=== PATIENT | female | born 1960 | race Caucasian/White ===

== ENCOUNTER → 2025-11-15 10:19 | Outpatient (REF) | payer MEDICARE, SELFPAY ==
--- OUTSIDE RECORDS SUMMARY | 2025-11-15 11:34 | XMS_ITS | Patient Health Record ---
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 Role Phone Vandana VIVAS [facility] Primary Care Provider Ham Simon [phone] Reason For Referral No Information Medications Medication SIG (Take, Route, Frequency, Duration) Notes Start Date End Date Status Omeprazole 20mg Capsule Delayed Release 1 capsule Orally Once a day; Duration: 90 Active Lisinopril 5mg Activ e Ibuprofen 800 MG Tablet 1 tablet Orally QD Active OsmoPrep 1.102-0.398 GM Tablet as directed Orally as directed; Duration: 1 days 08/29/2014 Activ e Social History Social History Additional Details Category Social Info Options Details Miscellaneous: Marital status: Occupation: para professiona l Caffeine: more than 4 cups per day Section Notes: Nonsmoker; sig alcohol Nonsmoker; sig alcohol Problems Problem Type SNOMED Code ICD Code Onset Dates Problem Status W/U Status Risk Notes Problem H. Pylori (21619850) Helicobacter pylori (H. pylori) infection (041.86) Active confirmed Problem Colon cancer screening (578779490) Colon cancer screening (V76.51) Active confirmed Problem Gastroesophageal reflux disease (107160274) GERD (gastroesophage al reflux disease) (530.81) Active confirmed Problem Barium swallow abnormal (672901583) Abnormal barium swallow (793.4) Active confirmed Plan Of Treatment Future Test Test Name Order Date UPPER GI ENDOSCOPY 02/24/2014 Insurance Providers Payer Name Payer Address Payer Phone Subscriber Number Group Number Insured Name Patient Relationship to Insured Coverage Start Date Coverage End Date [facility] [address] [facility] [place] [phone] [id number] TIMOTHY LIZARRAGA Self - patient is the insured Medical (General) History Medical History History ICD Code HTN Denies [place],DM,CVA,Lung disease,renal dise ase GERD Negative colonoscopy around age 50 [address] Ranjit Breen--negative Arthritis, foot pain Upper endoscopy in 03/2014 wi th mild duodenitis and mild gastirits, with H.pylori; small HH and reflux--no esophagitis nor Reyna's Irregular heart beat --had a 30 day mon itor in 07/2014-? results Kidney stone--had a cystoscopy and stent Surgical History Surgery Date(Month/Year) hysterectomy knee surgery shoulder surgery Breast biopsy 02/24/14
--- OUTSIDE RECORDS SUMMARY | 2025-11-15 11:34 | XMS_ITS | Patient Health Record ---
Author [facility] Address [address] [facility] [place] [address] Care Team Providers Care Drop Clipper Name Role Phone Marlee Resendez MD Primary Care Provider Rex Borges Unavailable [phone] Allergies Allergen (clinical drug ingredient) Drug/Non Drug Allergy documented on EMR Reaction Allergy Type Onset Date Status sulindac Sulindac rash/hives Drug Allergy Active Reason For Referral No Information Medications Medication SIG (Take, Route, Frequency, Duration) Notes Start Date End Date Status Vitamin D (Ergocalciferol) 38922 UNIT TAKE 1 CAPSULE BY MOUTH ONCE A WEEK. Oral; Duration: 28 Active Lisinopril 40 MG 1 tablet Orally Once a day Active Calcium 600 MG 1 tablet with meals Orally Twice a day Active amLODIPine Besylate 5 MG TAKE 1 TAB BY MOUTH DAILY. Oral; Duration: 30 Active Aspirin 81 MG 1 tablet Orally Once a day Active Omeprazole 20 MG 2 capsules Orally On ce a day Not-Taking Clotrimazole-Betameth asone 1-0.05 % APPLY TO LEFT HEEL TWICE DAILY FOR 4 WEEKS External; Duration: 15 Not-Takin g Afluria Preservative Free 0.5 ML inject 0.5 milliliter intramuscularly Intramuscular; Duration: 1 Flu Shot Active Meloxicam 15 MG 1 tablet Orally Once a day; Duration: 30 day(s) 07/08/2017 Active Social History Tobacco Use: Social History Observation Description Date Details (start date - stop date) Never Smoker NA - NA Tobacco Use/Smoking Question Answer Notes Are you a: nonsmoker Additional Findings: Tobacco Non-User Current no n-smoker Alcohol Screen Question Answer Notes Did you have a drink containing alcohol in the p ast year? No Points 0 Interpretation Negative Tobacco use other than smoking: Question Answer Notes Are you an other tobacco user? No Problems Problem Type SNOMED Code ICD Code Onset Dates Problem Status W/U Status Risk Notes Problem Achilles bursitis (672705481) Achilles tendinitis, left leg (M76.62) Active confirmed Plan Of Treatment Pending Test Test Name Order Date X ray : Foot, left 3V 07/08/2017 09584, [id number]- INJECT TENDON ORIGIN/INSER T 04/10/2017 Insurance Providers Payer Name Payer Address Payer Phone Subscriber Number Group Number Insured Name Patient Relationship to Insured Coverage Start Date Coverage End Date Cigna [address] [place] [phone] [id number] Pratima Jasso Self - patient is the insured Medical (General) History Medical History History ICD Code back, hip, knee pain chicken pox hypertension reflux Heart disease Arthritis Surgical History Surgery Date(Month/Year) knee surgery hysterectomy shoulder surgery 04/2010
--- OUTSIDE RECORDS SUMMARY | 2025-11-15 11:34 | XMS_ITS | Encounter Summary ---
Author Organization [facility] Address [address] [place] [address] Care Team Providers Care Supply Chain Vice President Name Role Phone Ester Moser MD Primary Care Prov ider Encounter Details Date Type Department Care Team (Late st Contact Info) Description 09/23/2025 Results Follow-Up Adult [address] [phone] Ester Moser MD [address] [place], [place] Social History Tobacco Use Types Packs/Day Years Used Date Smoking Tobacco: Never Smokeless Tobacco: Never Alcohol Use Standard Drinks/Week Comments No 0 (1 standard drink = 0.6 oz pur e alcohol) Housing Instability Answer Date Recorde d Are you worried that in the next 2 months you may not have stable housing? No 09/21/2024 Food Access & Nutrition Answer Date Rec orded Do you have access to a vari ety of food including fruits and vegetables? Yes 09/21/2024 Access to Healthcare Answer Date Record ed Within the last 3 months, ho w many times did you visit the emergency department for your medical care? 0 09/21/2024 Health Literacy Answer Date Recorded How often do you need to hav e someone help you when you read instructions, pamphlets, or other written material from your doctor or pharmacy? Never 09/21/2024 Caregiver: How often do you need to have someone help you when you read instructions, pamphlets, or other written material from your doctor or pharmacy? Not on file 09/21/2024 Financial Risk Answer Date Recorded How hard is it for you to pa y for the very basics like food, housing, medical care, and air conditioning / heating? Patient declined 09/21/2024 Transportation Answer Date Recorded Has the lack of transportati on kept you from meetings, work, or from getting things needed for daily living? No Has the lack of transportati on kept you from medical appointments or from getting medications? No 09/21/2024 Social Isolation Answer Date Recorded How often do you feel lonely or isolated from th ose around you? Never 09/21/2024 Food Risk Answer Date Recorded Within the past 12 months we worried whether our food would run out before we got money to buy more. Patient declined 024 Within the past 12 months th e food we bought just didn't last and we didn't have money to get more. Patient declined 08/25 Dependent Care Answer Date Recorded Do you need help finding or paying for care for your loved ones. For example, children's nursery assistant or elderly care for an older adult? No 09/21/2024 Education Answer Date Recorded Do you think completing more education or training, like finishing a GED, going to college, or learning a trade, would be helpful for you? N/A 09/21/2024 Employment and Income Answer Date Recor ded During the last four weeks, have you been actively looking for work? No 09/21/2024 Living Situation Answer Date Recorded What is your living situation? Unrecognized valu e 09/21/2024 Comments No Sex and Gender Information Value Date Recorded Sex Assigned at Not on file Legal Sex Female 3:00 AM EST Gender Identity Not on file Sexual Orientation Not on file documented as of this encounter Progress Notes * Dipika Morales MA - 09/30/2025 9:[address] Tellez I do not see a Dx of sleep apnea nor Dm??? documented in this encounter Plan of Treatment Upcoming Encounters Date Type Department Care Team (Late st Contact Info) Description 01/10/2026 12:00 PM EST Office Visit Adult Medicine [address] [phone] Ester Moser MD [address] [place] [address] documented as of this encounter Visit Diagnoses Not on filedocumented in this encounter Additional Health Concerns Assessment Noted Time PHQ-9 Depression Total Score: 1 01/25/20 25 12:19 PM EST documented as of this encounter Care Teams Supply Chain Vice President Relationship Specialty Start Date End Date Ester Moser MD [address] [place] [address] PCP - General Internal Medicine 09/28/24 documented as of this encounter
--- OUTSIDE RECORDS SUMMARY | 2025-11-15 11:34 | XMS_ITS ---
Author Name [facility] Organization Unknown Care Team Organization Name Specialty Phone Email Start Date End Da te [facility] Sly Awan Primary [facility] 12/02/202206/24 [facility] Termed, PROVIDER Primary Care 10/01/202206/24
--- OUTSIDE RECORDS SUMMARY | 2025-11-15 11:34 | XMS_ITS | Data Portability ---
Author Organization [facility] Address [address] [place] [address] Assessment No assessment recorded. Plan of Treatment Reminders Order Date Submit Date Provider Last Modified By Organization Details Last Modified Time Details Appointments None recorded. Lab rapid strep group A, throat 2022 023 [facility] [address], [address] [place] [address], [phone], 3 11:49:24 rapid flu (A+B) 2022 023 [facility] _[facility], [address] [place] [address], [phone], 3 11:49:24 rapid SARS CoV 2 Ag, QL IA, respiratory specimen 2022 023 [facility] _[facility], [address] [place] [address], [phone], 3 11:49:24 Referral None recorded. Procedures None recorded. Surgeries None recorded. Imaging None recorded. Medication Orders prednisone 20 mg tablet 2022 023 [facility] #[id number], [address] [facility], [place], [address], 3 11:49:27 Allergy Relief (fluticason e) 50 mcg/actuati on nasal spray,suspe nsion 2022 023 [facility] #[id number], [address] [place] [address], [address], 3 11:49:27 benzonatate 200 mg capsule 2022 023 [facility][id number], [address] [place], [address], 3 11:49:26 Patient TargetsNo targets recorded. Patient Instructions Encounter Date Encounter Id Patient Instructions Last Modified By Organization Details Last Modified Time 01/09/2023 [id number] Sinusitis is an infection of the lining of the sinus cavities in your head. Sinusitis often follows a cold. It causes pain and pressure in your head and face. In most cases, sinusitis gets better on its own in 1 to 2 weeks. But some mild symptoms may last for several weeks. Sometimes antibiotics are needed. if you are having problems. It's also a good idea to know your test results and keep a list of the medicines you take. How can you care for yourself at home? Take an plso-uhy-xeoecrf pain medicine. Avoid Ibuprofen, Aleve and Aspirin if . If the doctor prescribed antibiotics, take them as directed. Do not stop taking them just because you feel better. You need to take the full course of antibiotics. Be careful when taking xzxa-cgj-alqmgae cold or influenza (flu) medicines and Tylenol at the same time. Many of these medicines have acetaminophen, which is Tylenol. Read the labels to make sure that you are not taking more than the recommended dose. Too much acetaminophen (Tylenol) can be harmful. Breathe warm, moist air from a steamy shower, a hot bath, or a sink filled with hot water. Avoid cold, dry air. Using a humidifier in your home may help. Follow the directions for cleaning the machine. Use saline (saltwater) nasal washes. This can help keep your nasal passages open and wash out mucus and bacteria. You can buy saline nose drops at a grocery store or drugstore. Or you can make your own at home by adding 1 teaspoon (5 millilitres) of salt and 1 teaspoon (5 millilitres) of baking soda to 2 cups (500 mL) of distilled water. If you make your own, fill a bulb syringe with the solution, insert the tip into your nostril, and squeeze gently. Blow your nose. Put a hot, wet towel or a warm gel pack on your face 3 or 4 times a day for 5 to 10 minutes each time. Try a decongestant nasal spray like oxymetazoline (Drixoral). Do not use it for more than 3 days in a row. Using it for more than 3 days can make your congestion worse. Not available 01/09/2023 11:46:47 If you test positive for COVID-19, stay home for at least 5 days and isolate from others in your home. You are likely most infectious during these first 5 days. Wear a high-quality mask if you must be around others at home and in public. Do not go places where you are unable to wear a mask. For travel guidance, see CDC s Travel webpage. Do not travel. Stay home and separate from others as much as possible. Use a separate bathroom, if possible. Take steps to improve ventilation at home, if possible. Don t share personal household items, like cups, towels, and utensils. Monitor your symptoms. If you have an emergency warning sign (like trouble breathing), seek emergency medical care immediately. If you had symptoms and: Your symptoms are improving You may end isolation after day 5 if: You are fever-free for 24 hours (without the use of fever-reducing medication). Your symptoms are not improving Continue to isolate until: You are fever-free for 24 hours (without the use of fever-reducing medication). Your symptoms are improving. Regardless of when you end isolation Until at least day 11: Avoid being around people who are more likely to get very sick from COVID-19. Remember to wear a high-quality mask when indoors around others at home and in public. Do not go places where you are unable to wear a mask until you are able to discontinue masking (see below). For travel guidance, see CDC s Travel webpage. Not available 01/09/2023 11:46:23 Reason for Referral None Reported. Results Created Date Observation Date Name Description Value Unit Range Abnormal Flag Note LastModifiedBy Organization Detail LastModifiedTime 01/09/2001/09/2023 rapid SARS CoV 2 Ag, QL IA, respi rator y speci men Unknown Analyte negati ve Not Available [address] [place] [address], [place], [address], 01/09/2023 11:00:24 01/09/20 23 01/09/2023 rapid SARS CoV 2 Ag, QL IA, respi rator y speci men Unknown Analyte Normal =Negat nereida Not Available [address] [place] [address], [place], [address], 01/09/2023 11:00:24 01/09/20 23 01/09/2023 rapid flu (A+B) Unknown Analyte negati ve Not Available [address] [place] [address], [place], [address], 01/09/2023 10:59:35 01/09/20 23 01/09/2023 rapid flu (A+B) Unknown Analyte negati ve Not Available [address] [place] [address], [place], [address], 01/09/2023 10:59:35 01/09/20 23 01/09/2023 rapid flu (A+B) Unknown Analyte Normal = Negati ve Not Available [address] [place] [address], [place], [address], 01/09/2023 10:59:35 01/09/20 23 01/09/2023 rapid flu (A+B) Unknown Analyte Normal = Negati ve Not Available [address] [place] [address], [place], [address], 01/09/2023 10:59:35 01/09/20 23 01/09/2023 rapid strep group A, throa t Unknown Analyte Normal = Negati ve Not Available [address] [place] [address] [place], [address], 01/09/2023 11:00:29 01/09/20 23 01/09/2023 rapid strep group A, throa t Unknown Analyte negati ve Not Available [address] [address] [facility] [place] [address], [place], [address], 01/09/2023 11:00:29 Result Notes None recorded. Problems Name Problem SNOMED Code Status Onset Date Resolution Date Notes Provider Name and Address Organization Details Recorded Time Asthma 458333998 Active 2022 OBED KNOX null, [place] - [facility] 3 10:56:59 Hypertensive disorder 75945002 Active 2022 OBED KNOX null, [place] - [facility] 3 10:58:44 Hyperlipidemia 31844705 Active 2022 OBED KNOX null, [place] - [facility] 3 10:58:53 Cardiomegaly 0505162 Active 2022 OBED KNOX null, [place] - [facility] 3 10:59:07 Problem Notes None recorded. Procedures Surgical History Date Name Laterality Status Provider Name and Address Organization Details Recorded Time hysterectomy completed OBED KNOX [place] - [facility] 01/09/2023 10:59:55 procedure on knee completed OBED KNOX [place] - [facility] 01/09/2023 11:00:18 Imaging Results None recorded. Procedure Notes None recorded. Medical Equipment None Reported. Allergies Allergen ID Allergen Name Allergen Category Reaction Reaction Severity Criticality Documentation Date Start Date Code Code System Note Provider Name and Address Organization Details Recorded Time 082703 sulindac medicatio n facial swelling rash Not available Not available Not available 01/09/2023 76524 RxNorm OBEDTERESO KNOX null, [place] - [facility] 3 10:55:40 294016 amoxicill in medicatio n diarrhea Not available Not available 01/09/2023 723 RxNorm with clavu lanic acid OBEDTERESO KNOX null, [place] - [facility] 3 10:57:51 Medications Name Sig Start Date Stop Date Status Note LastModified by Organization Details LastModified Time atorvastati n 20 mg tablet active Not Available Not Available Not Available benzonatate 200 mg capsule TAKE 1 CAPSULE BY MOUTH THREE TIMES A DAY NEEDED FOR 7 DAYS active Not Available Not Available No t Available ondansetron HCl 4 mg tablet 01/09 completed Not Available Not Available Not Available prednisone 20 mg tablet TAKE 2 TABLETS EVERY DAY BY MOUTH IN THE MORNING FOR 4 DAYS. active Not Available Not Available No t Available amlodipine 5 mg tablet TAKE 1 TABLET BY MOUTH EVERY DAY active Not Available Not Available No t Available meclizine 25 mg tablet TAKE 1 TABLET BY MOUTH 3 TIMES DAILY NEEDED FOR DIZZINESS 01/09 completed Not Available Not Available Not Available lisinopril 30 mg tablet TAKE 1 TABLET BY MOUTH EVERY DAY *NEED APPT FOR FUTURE REFILLS* active Not Available Not Available No t Available diclofenac sodium 50 mg tablet,francis yed release TAKE 1 TABLET BY MOUTH TWICE A DAY active Not Available Not Available No t Available scopolamine 1 mg over 3 days transdermal patch 01/09 completed Not Available Not Available Not Available fluticasone propionate 50 mcg/actuati on nasal spray,suspe nsion SPRAY 1 SPRAY BY INTRANASA L ROUTE TWICE A DAY DIRECTED active Not Available Not Available No t Available amoxicillin 875 mg-potassiu m clavulanate 125 mg tablet 01/09 completed Not Available Not Available Not Available Vitamin D3 25 mcg (1,000 unit) tablet TAKE 1 TABLET BY MOUTH EVERY DAY active Not Available Not Available No t Available Proair Digihaler active Not Available Not Available No t Available aspirin 81 mg capsule Take 1 capsule every day by oral route. active Not Available Not Available No t Available Vitals Date Recorded Body height Body mass index (BMI) Body weight Pain severity - 0-10 verbal numeric rating [Score] - Reported Respiratory rate Oxygen saturation Heart rate Body temperature Systolic And Diastolic Provider Name and Address Organization Details Last Updated DateTime 3 165.1 cm 36.1 kg/m2 82743.5 4 g 6 18 /min 100 % 60 /min 98.2 [degF] 130/77 mm[Hg] [facility] 3 11:01:13 Social History Question Answer Notes LastModified by Organizat ion Details LastModified Time Tobacco Smoking Status Never Smoker [facility]GELL[facility] [place] - [facility] 01/09/2023 10:59:27 Have You Recently Traveled Abroad? No Information not available 01/09/2023 Sex: Unknown Functional Status Question Answer Note LastModified by Organizat ion Details LastModified Time Do you use any illicit or recreational drugs? No [email or web address] Information not available 01/09/2023 Do you or have you ever used any other forms of tobacco or nicotine? No Information not available 01/09/2023 What is your level of alcohol consumption? None [email or web address] Information not available 01/09/2023 Mental Status None recorded. Family History Relationship Description Onset Age of this Age Resolved Age Notes LastModified by Organization Details LastModified Time Father No current problems or disability [email or web address] Not available 01/09 10:59:10 Mother No current problems or disability [email or web address] Not available 01/09 10:59:10 Medical History No medical history recorded. Gynecological HistoryNo gynecological history recorded. Obstetrics History GPAL:G 0 P 0 0 0 0 Past Encounters Encounter ID Performer Location Encounter Start Date Encounter Closed Date Diagnosis/Indication Diagnosis SNOMED-CT Code Diagnosis ICD10 Code Diagnosis IMO Codes Diagnosis Note [id number] [facility] [address] [address] [place] [address] 01/06/2019 09:20:37 01/06/2019 10:01:04 [id number] [address] [address] [address] [place] [address] 09/21/2019 17:07:14 09/21/2019 18:09:59 [id number] [address] [address] [address] [place] [address] 12/21/2018 16:03:57 12/21/2018 16:33:41 [id number] [address] [address] [address] [place] [address] 05/17/2020 08:58:55 05/17/2020 09:42:24 [id number] [address] [facility] [address] [place] [address] 10/02/2022 09:43:05 10/02/2022 12:38:15 [id number] Alessandro Chung NP [address] [address] [place] [address] 01/09/2023 10:03:23 01/09/2023 11:53:43 Exposure to SARS-CoV-2 180991377 Z20.822 Acute sinusitis 50206010 J01.90 Health Concerns Section Related Observation LastModified by Organization Detai ls LastModified Time None Recorded Concern Status LastModified by Organization Details LastModified Time None Recorded Advance Directives Directive None Recorded Payers Insurance Date Sequence Insurance Name Policy Number Policy Long Covered Member ID Long Member ID Guarantor Name 01/09/[address] [place] [address] [id number] Pratima Jasso [id number] Pratima Jasso Notes Date Note Type Note Provider Name and Address Organization Details Recorded Time 01/09/2023 text/html CongestionReport ed by Patientnasal congestion with post nasal drip x 3 days. denies nay fever or fever with chills. no SOB or respiratory distress. Alessandro Chung NP [address] [place], [address], [place] - [facility] 01/09/2023 11:50:08 OBGyn Episode No OBEpisode recorded.
--- OUTSIDE RECORDS SUMMARY | 2025-11-15 11:34 | XMS_ITS | Clinical Summary ---
Author Organization [facility] [address] [place] [address] [place] [phone] Phone Care Team Providers Care Quality Control Chemist Name Role Phone Ester Moser MD Primary Care Prov ider Allergies Active Allergy Reactions Criticality Noted Date Comments Amoxicillin Diarrhea 01/31/2025 amoxicillin Sulindac Rash Low 03/17/2014 Medications aspirin 81 mg chewable tablet Chew 1 tablet (81 mg total) 1 (one) time each day. 02/15/20 15 Active albuterol HFA (PROAIR HFA ; PROVENTIL HFA ; VENTOLIN HFA) 90 mcg/actuation inhaler Inhale 2 Puffs into the lungs every 4 hours as needed for Cough, Wheezing or Shortness of Breath. 6.7 g 2 02/01/20 25 Active atorvastatin (LIPITOR) 40 mg tablet Take 1 tablet (40 mg total) by mouth 1 (one) time each day. 90 each 3 02/01/20 25 026 Active fluticasone propionate (FLONASE) 50 mcg/actuation nasal spray Shake gently. Before first use, prime pump. After use, clean tip and replace cap.2 Sprays by Each Nare route daily for 90 days. 16 g 2 02/19/20 25 Active cholecalciferol (Vitamin D3) 25 mcg (1,000 unit) tablet Take 1 tablet (1,000 Units total) by mouth 1 (one) time each day. 90 tablet 1 06/16/20 25 026 Active losartan-hydroC HLOROthiazide (Hyzaar) 100-12.5 mg per tabletIndicatio ns:Primary hypertension Take 1 tablet by mouth 1 (one) time each day. 30 each 2 09/22/20 25 026 Active tirzepatide, weight loss, (ZEPBOUND) 2.5 mg/0.5 mL injection Inject 0.5 mL (2.5 mg total) under the skin every 7 (seven) days. 6 mL 10/24/20 25 Active Additional Information Patient not taking.Reported on 11/08/2025 tirzepatide (MOUNJARO) 2.5 mg/0.5 mL injectionIndica tions:Class 2 severe obesity due to excess calories with serious comorbidity and body mass index (BMI) of 37.0 to 37.9 in adult Inject 0.5 mL (2.5 mg total) under the skin every 7 (seven) days. 6 mL 10/03/20 25 025 Discontinued Active Problems Problem Noted Date Diagnosed Date History of Helicobacter pylori infection 025 Asthma 01/09/2023 Cardiomegaly 01/09/2023 Hyperlipidemia 01/09/2023 Assessment & Plan (09/22/2025 1:41 PM EDT): Currently on Atorvastatin. Last LDL 73 Will continue same medication. Assessment & Plan (07/12/2025 9:57 AM EDT): On atorvastatin 40 mg a day LDL 73. Healthy diet and regular exercise discussed as above. Will continue same medication. Assessment & Plan (06/16/2025 10:48 AM EDT): On atorvastatin to 40 mg a day. Healthy diet and regular exercise discussed as above. Will check a lipid profile and CMP before her next visit. Orders: CBC and differential; Future Comprehensive metabolic panel; Future Lipid panel with reflex to direct LDL; Future Thyroid stimulating hormone with reflex to free t4 and free t3; Future Left ventricular hypertrophy 12/20/2022 Left Achilles tendinitis 10/27/2017 Overview (08/23/2024): Dr Zamorano ([facility]) Atypical chest pain 02/14/2015 GE reflux 02/11/2014 Throat discomfort 11/19/2011 Overview (08/23/2024): Saw ENT, see note 11/19/11 HTN (hypertension) 06/18/2010 Assessment & Plan (09/22/2025 1:41 PM EDT): BP elevated today. Will Increase the dose of losartan/hctz to 100/12.5. Previously on Lisinopril at max dose with no good control. Orders: losartan-hydroCHLOROthiazide (Hyzaar) 100-12.5 mg per tablet; Take 1 tablet by mouth 1 (one) time each day. Assessment & Plan (07/12/2025 9:57 AM EDT): Blood pressure is well controlled today. Recently switched to Losartan/hctz 50/12.5mg, well tolerated.Will continue same medication. Instructed to follow a low-salt diet and exercise regularly. Assessment & Plan (06/16/2025 10:48 AM EDT): Blood pressure is not well controlled today. 150/70. Previously on amlodipine but dcd for side effects, on Lisinopril 40mg. Will switch to Losartan/hctz. We will follow up in 1 month. Instructed to follow a low-salt diet and exercise regularly. Orders: CBC and differential; Future Comprehensive metabolic panel; Future Lipid panel with reflex to direct LDL; Future Thyroid stimulating hormone with reflex to free t4 and free t3; Future Assessment & Plan (01/31/2025 10:19 AM EDT): Pure hypercholesterolemia 06/18/2010 Assessment & Plan (07/12/2025 9:44 AM EDT): SmartLink not supported outside of the Encounter Diagnoses SmartSection. Assessment & Plan (01/31/2025 10:19 AM EDT): Encounters Date Type Department Care Team Description 10/24/2025 11:30 AM EST Office Visit Adult [address] [phone] Zulema Nj PA Primary hypertension (Primary Dx); Mixed hyperlipidemia; Class 2 severe obesity due to excess calories with serious comorbidity and body mass index (BMI) of 37.0 to 37.9 in adult 10/24/[address] [phone] Ester Whyte MD 09/23/2025 Results Follow-Up [address] [phone] Ester Whyte MD 09/22/2025 12:35 PM EDT Lab Draw [address] Obesity (BMI 30-39.9) 09/22/2025 12:00 PM EDT Office Visit [address] [phone] Ester Whyte MD Obesity (BMI 30-39.9) (Primary Dx); Primary hypertension; Mixed hyperlipidemia; Snoring; Chronic pain of both lower extremities from Last 3 Months Immunizations Immunization Administration Dates Next Due Influenza Quadravalent, MDCK , 0.5ml, preservative free (Flucelvax) 6mo and older 08/13/2022,08/22/2021,08/04/2020 Influenza Quadravalent, MDCK , 0.5ml, with preservative (Flucelvax) 6mo and older 09/20/2019 Influenza trivalent, 0.5mL, preservative free (Fluarix; FluLaval; Fluzone) ages 6mo and older (Afluria) 3 years and older 09/12/2017,08/27/2016 Influenza trivalent, with pr eservative (Fluzone; Afluria) 6mo and older 11/19/2011,09/04/2010 Influenza, Unspecified 08/21/2021,08/24/2017,01/2016 Moderna SARS-CoV-2 COVID-19, mRNA, LNP-S, preservative free 12/21/2021,03/02/2021,02/02/2021 Td Tetanus diptheria (Tdvax) 7yo and older 07/14 Tdap Tetanus diptheria acell ular pertussis (Boostrix; Adacel) 7yo and older 02/18/2012 Surgical History Surgery Date Site/Laterality Comments OTHER SURGICAL HISTORY 2003 PROCEDURE: HISTORICAL TOTAL HYSTERECTOMY W/O BSO; COMMENT: dysmenorrhea, menorrhagia KNEE SURGERY -2005 PROCEDURE: HISTORICAL KNEE SURGERY; COMMENT: left - arthroscopy COLONOSCOPY 06/30/2012 PROCEDURE: [place] COLONOSCOPY FLX DX W/COLLJ SPEC WHEN PFRMD; COMMENT: negative/incomplete to 50 cm. EYE SURGERY 11/06/2017 Right PROCEDURE: HISTORICAL EYE SURGERY OTHER SURGICAL HISTORY 11/2017 Left PROCEDURE: ---- OTHER ----; COMMENT: Left heel surgery BREAST BIOPSY 2014 Right PROCEDURE: BX BREAST; PERC NEEDLE CORE W/IMAG GUID; COMMENT: rt. breast bx-benign HYSTERECTOMY Medical History Medical History Date Comments HTN (hypertension) 06/18/2010 DX:HTN (hyper tension) Pure hypercholesterolemia 06/18/2010 DX:Pur e hypercholesterolemia Throat discomfort 11/19/2011 DX:Throat disc omfort GE reflux 02/11/2014 DX:GE reflux Family History Medical History Relation Name Comments CABG Brother 1 Coronary artery disease Brother 1 Diabetes Brother 1 Hyperlipidemia Brother 1 Hypertension Brother 1 Coronary artery disease Brother 2 Coronary artery disease Brother 3 Other: Kidney failure Brother 3 No Known Problems Daughter 1 No Known Problems Daughter 2 Heart attack Father age 59 Arthritis Mother Coronary artery disease Mother Diabetes Mother Hyperlipidemia Mother Hypertension Mother Thyroid disease Mother Breast cancer Mother's side mother's cousin Cousin Breast cancer Other p. aunt Arthritis Sister 1 Coronary artery disease Sister 1 Arthritis Sister 2 Coronary artery disease Sister 2 Arthritis Sister 3 Coronary artery disease Sister 3 Arthritis Sister 4 Coronary artery disease Sister 4 Arthritis Sister 5 Coronary artery disease Sister 5 Colon cancer Neg Hx Ovarian cancer Neg Hx Stroke Neg Hx Relation Name Status Comments Brother 1 Alive Brother 2 Alive Brother 3 Daughter 1 Alive Daughter 2 Alive Father Maternal Grandfather Maternal Grandmother Mother Alive Mother's side mother's cousin Other p. aunt Alive Paternal Grandfather Paternal Grandmother Sister 1 Alive Sister 2 Alive Sister 3 Alive Sister 4 Alive Sister 5 Alive Social History Tobacco Use Types Packs/Day Years Used Date Smoking Tobacco: Never Smokeless Tobacco: Never Tobacco Cessation:Counseling Given: Not Answered Alcohol Use Standard Drinks/Week Comments No 0 (1 standard drink = 0.6 oz pur e alcohol) Housing Instability Answer Date Recorde d Are you worried that in the next 2 months you may not have stable housing? No 10/24/2025 Food Access & Nutrition Answer Date Rec orded Do you have access to a vari ety of food including fruits and vegetables? Yes 10/24/2025 Access to Healthcare Answer Date Record ed Within the last 3 months, ho w many times did you visit the emergency department for your medical care? 0 09/21/2024 Health Literacy Answer Date Recorded How often do you need to hav e someone help you when you read instructions, pamphlets, or other written material from your doctor or pharmacy? Never 10/24/2025 Caregiver: How often do you need to have someone help you when you read instructions, pamphlets, or other written material from your doctor or pharmacy? Not on file 10/24/2025 Financial Risk Answer Date Recorded How hard is it for you to pa y for the very basics like food, housing, medical care, and air conditioning / heating? Not very hard 10/24/2025 Transportation Answer Date Recorded Has the lack of transportati on kept you from meetings, work, or from getting things needed for daily living? No Has the lack of transportati on kept you from medical appointments or from getting medications? No 10/24/2025 Social Isolation Answer Date Recorded How often do you feel lonely or isolated from th ose around you? Never 10/24/2025 Food Risk Answer Date Recorded Within the past 12 months we worried whether our food would run out before we got money to buy more. Never true 10/24/2025 Within the past 12 months th e food we bought just didn t last and we didn t have money to get more. Not on file 10/24/2025 Dependent Care Answer Date Recorded Do you need help finding or paying for care for your loved ones. For example, child neurologist or elderly care for an older adult? No 10/24/2025 Education Answer Date Recorded Do you think completing more education or training, like finishing a GED, going to college, or learning a trade, would be helpful for you? N/A 10/24/2025 Employment and Income Answer Date Recor ded During the last four weeks, have you been actively looking for work? No 10/24/2025 Living Situation Answer Date Recorded What is your living situation? Unrecognized valu e 10/24/2025 Comments No Sex and Gender Information Value Date Recorded Sex Assigned at Not on file Legal Sex Female 3:00 AM EST Gender Identity Not on file Sexual Orientation Not on file Obstetrics History Para Term AB IAB SAB Ectopic Multiple Livin g Live Births 2 2 2 2 Date Outcome GA Total Labor Labor/2nd/3rd Weight Sex Type Anes PTL Karin A1 A5 Name Clin Term Term Last Filed Vital Signs Vital Sign Reading Time Taken Comments Blood Pressure 180/77 11/08/2025 10:47 AM EST Pulse 65 11/08/2025 10:47 AM EST Temperature 36.9 C (98.4 F) 10/24/2025 11:39 AM EST Respiratory Rate 17 10/24/2025 11:39 AM EST Oxygen Saturation 99% 10/24/2025 11:39 AM EST Inhaled Oxygen Concentration - - Weight 103 kg (226 lb) 11/08/2025 10:47 AM EST Height 162.6 cm (5' 4 ) 11/08/2025 10:47 AM EST Body Mass Index 38.79 11/08/2025 10:47 AM EST Plan of Treatment Upcoming Encounters Date Type Department Care Team (Late st Contact Info) Description 01/10/2026 12:00 PM EST Office Visit Adult Medicine [address] [phone] Ester Moser MD [address] [place] [address] Health Maintenance Due Date Last Done Comments Pneumococcal Vaccine: 50+ Years (1 of 2 - PCV) 1979 RSV Immunization Adult Patients (1 - Risk 50-74 years 1-dose series) 2010 Zoster Vaccines (1 of 2) 2010 DTaP,Tdap,and Td Vaccines (3 - Td or Tdap) 02/17/2022 02/18/2012, 07/14/2006 Medicare Annual Wellness Visit 11/02/2022 Osteoporosis Screening (Bone Density Screening) 11/02/2022 Influenza Vaccine (#1) 2026 2, 08/22/2021, 08/21/2021, Additional history exists Postponed from 07/25/2025 (Patient Refused) Hypertension/CHF/CAD Annual BMP Blood Test 09/22/2026 09/22/2025, 06/27/2025, 01/21/2025, Additional history exists Falls Risk Assessment 10/24/2026 10/24/2025 Social Influencers of Health Screening 10/24/2026 10/24/2025 Breast Cancer Screening 10/28/2026 10/28/20 24, 10/16/2024, 09/11/2023, Additional history exists Colorectal Cancer Screening: Colonoscopy 03/29/2029 03/29/2024 Cholesterol Screening (Lipid Panel) 06/27/2030 06/27/2025, 01/21/2025, 05/25/2024, Additional history exists Hepatitis C Screening Completed 02/11/2014 COVID-19 Vaccine Discontinued 12/21/2021, 07/2021, 02/02/2021 Depression Screening Completed 10/24/2025 HIB Vaccines Aged Out No longer eligi ble based on patient's age to complete this topic HPV Vaccines Aged Out No longer eligi ble based on patient's age to complete this topic Hepatitis A Vaccines Aged Out No long er eligible based on patient's age to complete this topic Hepatitis B Vaccines Aged Out No long er eligible based on patient's age to complete this topic IPV Vaccines Aged Out No longer eligi ble based on patient's age to complete this topic MMR Vaccines Aged Out No longer eligi ble based on patient's age to complete this topic Meningococcal ACWY Vaccine Aged Out N o longer eligible based on patient's age to complete this topic Meningococcal B Vaccine Aged Out No l onger eligible based on patient's age to complete this topic RSV Immunization Patients Under 20 months Aged Out No longer eligible based on patient's age to complete this topic Varicella Vaccines Aged Out No longer eligible based on patient's age to complete this topic Procedures Procedure Name Priority Date/Time Associated Diagnosis Comments BASIC METABOLIC PANEL Routine 09/22/2025 12:48 PM EDT Obesity (BMI 30-39.9) MAGNESIUM Routine 09/22/2025 12:48 PM EDT Obesity (BMI 30-39.9) LIPID PANEL WITH REFLEX TO DIRECT LDL Routine 06/27/2025 8:51 AM EDT Primary hypertension Mixed hyperlipidemia Class 2 severe obesity due to excess calories with serious comorbidity and body mass index (BMI) of 37.0 to 37.9 in adult (CMS/HCC V24, CMS/HCC V28) MG MAMMO DIGITAL DIAGNOSTIC W ANDRES LEFT Routine 10/28/2024 10:38 AM EST Abnormal mammogram HM COLONOSCOPY Routine 03/29/2024 HEPATITIS C SCREENING Routine 02/11/2014 from Last 3 Months or Most Recently Relevant to Health Maintenance Results * Magnesium (09/22/2025 12:48 PM EDT) Pathologist [facility] Magnesium 2.1 1.9 - 2.6 mg/dL LAB CHEMISTRY METHOD 09/22/2025 4:52 PM EDT [facility] Blood Venous blood specimen / Unknown Venipuncture / Unknown 09/22/2025 12:48 PM EDT 09/22/2025 12:48 PM EDT us Ester Moser MD LAB BLOOD ORDERABL ES Final Result [facility] [address] [place] [address], [place] [phone] * Basic metabolic panel (09/22/2025 12:48 PM EDT) Sodium 141 133 - 145 mmol/L LAB CHEMISTRY METHOD 09/22/2025 4:52 PM EDT [facility] Potassium 4.1 3.5 - 5.5 mmol/L LAB CHEMISTRY METHOD 09/22/2025 4:52 PM EDT [facility] Chloride 104 96 - 110 mmol/L LAB CHEMISTRY METHOD 09/22/2025 4:52 PM EDT [facility] CO2 31 21 - 32 mmol/L LAB CHEMISTRY METHOD 09/22/2025 4:52 PM [facility] Anion Gap 6 3 - 11 LAB CHEMISTRY METHOD 09/22/2025 4:52 PM [facility] Glucose 93 70 - 100 mg/dL LAB CHEMISTRY METHOD 09/22/2025 4:52 PM [facility] BUN 16 5 - 25 mg/dL LAB CHEMISTRY METHOD 09/22/2025 4:52 PM [facility] Creatinine 0.68 0.50 - 1.10 mg/dL LAB CHEMISTRY METHOD 09/22/2025 4:52 PM [facility] eGFR 97 >=60 mL/min/1. 73m2 LAB CHEMISTRY METHOD 09/22/2025 4:52 PM [facility] Comment:Calculation based on the Chronic Kidney Disease Epidemiology Collaboration (CKD-EPI) equation refit without adjustment for race. BUN/Creatinine Ratio 23.5 LAB CHEMISTRY METHOD 09/22/2025 4:52 PM [facility] Calcium 9.8 8.5 - 10.5 mg/dL LAB CHEMISTRY METHOD 09/22/2025 4:52 PM [facility] Blood Venous blood specimen / Unknown Venipuncture / Unknown 09/22/2025 12:48 PM EDT 09/22/2025 12:48 PM EDT us Ester Moser MD LAB BLOOD ORDERABL ES Final Result [facility] [address] [place] [address], [place] [phone] * Lipid panel with reflex to direct LDL (06/27/2025 8:51 AM EDT) Cholesterol 164 0 - 200 mg/dL LAB CHEMISTRY METHOD 06/27/2025 2:51 PM EDT [facility] Triglycerides 83 0 - 150 mg/dL LAB CHEMISTRY METHOD 06/27/2025 2:51 PM EDT [facility] HDL 74 >=40 mg/dL LAB CHEMISTRY METHOD 06/27/2025 2:51 PM EDT [facility] LDL Calculated 73 0 - 100 mg/dL LAB CHEMISTRY METHOD 06/27/2025 2:51 PM EDT [facility] VLDL Cholesterol Jarrod 16.6 mg/dL LAB CHEMISTRY METHOD 06/27/2025 2:51 PM EDT [facility] Non HDL Chol. (LDL+VLDL) 90 <145 mg/dL LAB CHEMISTRY METHOD 06/27/2025 2:51 PM EDT [facility] Chol/HDL Ratio 2.2 0.0 - 4.4 LAB CHEMISTRY METHOD 06/27/2025 2:51 PM EDT [facility] Blood Venous blood specimen / Unknown Venipuncture / Unknown 06/27/2025 8:51 AM EDT 06/27/2025 8:51 AM EDT us Ester Moser MD LAB BLOOD ORDERABL ES Final Result [facility] [address] [place] [address], * MG Mammo Digital Diagnostic w Andres Left (10/28/2024 10:38 AM EST) Anatomical Region Laterality Modality Breast Left Mammography 10/28/2024 11:4 9 AM EST Impressions 10/28/2024 11:56 AM EST LEFT BREAST: Negative, no evidence of malignancy. Normal interval follow-up is recommended in 12 months. Findings and recommendations were discussed with the patient at the completion of the studies. BREAST DENSITY: B - There are scattered areas of fibroglandular density. BI-RADS CATEGORY: 1 - NEGATIVE RECOMMENDATION: Mammography: Screening left mammogram is recommended in 1 year. Ultrasound: Screening left mammogram is recommended in 1 year. Mammo Location: [facility], [address] [place] [address], [id number], . -------- FINAL REPORT -------- Dictated By: Angie Domingo Dictated Date: 10/28/2024 11:49 ET Assigned Physician: Angie Domingo Reviewed and Electronically Signed By: Angie Domingo Signed Date: 10/28/2024 11:56 ET Workstation ID: [id number] Transcribed By: Self Edit Transcribed Date: 10/28/2024 11:49 ET Narrative 10/28/2024 11:56 AM EST HISTORY: Callback from screening for 0.5 cm left breast focal asymmetry in the upper-outer quadrant at about 11 to 12 cm from the nipple. STUDIES: 1. Unilateral left diagnostic mammography with tomosynthesis and CAD 2. Targeted ultrasound of the left breast TECHNIQUE: Unilateral left digital diagnostic mammography is obtained and read in conjunction with computer-aided detection. Tomosynthesis as well as 2-D C view imaging were obtained. Spot compression Tomosynthesis images were also obtained. COMPARISON: Comparison made to multiple prior, most recent September 11, 2023, and most remote February 08, 2014. LEFT BREAST: Previously suggested focal asymmetry in the upper-outer quadrant at 11 to 12 cm from the nipple is less conspicuous on today's images and may have represented overlapping fibroglandular breast tissue. Targeted ultrasound of the left breast was performed at the location of the mammographic finding. The survey was performed at throughout the upper outer quadrant and did not reveal suspicious sonographic findings. Procedure Note Angie Domingo MD - 10/28/2024 HISTORY: Callback from screening for 0.5 cm left breast focal asymmetry inthe upper-outer quadrant at about 11 to 12 cm from the nipple. STUDIES: 1. Unilateral left diagnostic mammography with tomosynthesis and CAD 2. Targeted ultrasound of the left breast TECHNIQUE: Unilateral left digital diagnostic mammography is obtained andread in conjunction with computer-aided detection. Tomosynthesis as wellas 2-D C view imaging were obtained. Spot compression Tomosynthesis imageswere also obtained. COMPARISON: Comparison made to multiple prior, most recent August, and most remote February 08, 2014. LEFT BREAST: Previously suggested focal asymmetry in the upper-outerquadrant at 11 to 12 cm from the nipple is less conspicuous on today'simages and may have represented overlapping fibroglandular breasttissue. Targeted ultrasound of the left breast was performed at the location ofthe mammographic finding. The survey was performed at throughout theupper outer quadrant and did not reveal suspicious sonographic findings. IMPRESSION: LEFT BREAST: Negative, no evidence of malignancy. Normal intervalfollow-up is recommended in 12 months. Findings and recommendations were discussed with the patient at thecompletion of the studies. BREAST DENSITY: B - There are scattered areas of fibroglandular density. BI-RADS CATEGORY: 1 - NEGATIVE RECOMMENDATION: Mammography: Screening left mammogram is recommended in 1 year. Ultrasound: Screening left mammogram is recommended in 1 year. Mammo Location: [facility], [address] [place] [address], [id number], . -------- FINAL REPORT -------- Dictated By: Angie Domingo Dictated Date: 10/28/2024 11:49 ET Assigned Physician: Angie Domingo Reviewed and Electronically Signed By: Angie Domingo Signed Date: 10/28/2024 11:56 ET Workstation ID: [id number] Transcribed By: Self Edit Transcribed Date: 10/28/2024 11:49 ET Ester Moser MD IMG BI PROCEDURES Final Result * Colonoscopy (03/29/2024) Colonoscopy Normal, Abstracted Anatomical Region Laterality Modality Other Historical Provider HEALTH MAINTENANCE Final Result * Hepatitis C Screening (02/11/2014) Hepatitis C Screening Abstracted us Historical Provider HEALTH MAINTENANCE Final Result from Last 3 Months or Most Recently Relevant to Health Maintenance Insurance [employer] MEDICARE Care Teams Quality Control Chemist Relationship Specialty Start Date End Date Ester Moser MD [address] [place] [phone] PCP - General Internal Medicine 09/28/24
== END ==
LOC: HO.SL 10:19
PROVIDERS: PCP Internal Medicine; Visit Provider Internal Medicine
DX: R06.83 Snoring (principal)
CPT/HCPCS: 95806

== ENCOUNTER → 2025-11-15 21:00 | Outpatient (BNV) | payer MEDICARE, SELFPAY | PROVIDERS: PCP Internal Medicine; Visit Provider Internal Medicine | DX: R06.83 Snoring (principal) | CPT/HCPCS: 95806 ==